=== PATIENT | female | born 1960 | race Caucasian/White ===

== ENCOUNTER 2018-12-10 14:07 | Emergency (ER) | payer BC ==
[~2018-12-10] VITALS: Ht 167.6 cm; Wt 97.5 kg
[2018-12-10] MEDS ORDERED: LIPITOR20 MG (14:36)
[2018-12-10] MEDS ORDERED: ZANTAC300 MG (14:37)
[2018-12-10] MEDS ORDERED: CYMBALTA60 MG (14:37)
[2018-12-10] MEDS ORDERED: PERCOCET 5-3251 EACH (14:37)
[2018-12-10] MEDS ORDERED: AMITIZA24 MCG (14:37)
[2018-12-10] MEDS ORDERED: VITAMIN D31000 UNIT (14:38)
== END 2018-12-10 21:25 | disposition home or self-care (01) ==
LOC: ER 14:07
DX: J11.1 Influenza due to unidentified influenza virus with other respiratory manifestations (principal); B34.9 Viral infection, unspecified